=== PATIENT | female | born 1990 | race Caucasian/White ===

== ENCOUNTER → 2018-10-30 13:49 | Outpatient (CLI) | payer OTHER ==
[2018-10-30 14:55] LABS: AMYLASE - SERUM 39 U/L (25-115); LIPASE 119 U/L (73-393)
[2018-11-01 15:12] LABS: ANTIGLIADIN IGA 5 units (0-19); ANTIGLIADIN IGG 2 units (0-19)
[2018-11-02 06:14] LABS: ENDOMYSIAL ANTIBODY IGA Negative (Negative)
== END | disposition home or self-care (01) ==
LOC: D.LAB 10-09 13:15
PROVIDERS: ATTEND Internal Medicine Gastroenterology
DX: R10.12 Left upper quadrant pain (principal); R12 Heartburn; R11.0 Nausea

== ENCOUNTER → 2019-04-05 10:52 | Outpatient (CLI) | payer OTHER ==
--- NOTE | 2019-04-10 08:56 | EC ---
PATIENT:DIANA SAGASTUME DATE OF SERVICE: 04/05/19 SEX: F MEDICAL RECORD: [id number] DATE OF : [birth year] LOCATION:D[facility] AGE OF PATIENT: 29 ADMISSION DATE: 04/05/19 REFERRING PHYSICIAN: INTERPRETING PHYSICIAN: SAGAR AGUILAR MD ECHOCARDIOGRAM REPORT ECHO CHARGES 4 ECHO COMPLETE Date: 04/05/19 CLINICAL DIAGNOSIS: MURMUR/PALPITATIONS ECHOCARDIOGRAPHIC MEASUREMENTS (adult normal given) AC root (d.<3.7cm) 2.6 cm LV Septum d (<1.2 cm> 0.9 cm Valve Excursion 2.2 cm LV Septum (systole) 1.4 cm Left Atria (s.<4.0cm> 3.6 cm LVPW d(<1.2cm) 0.9 cm RV (d.<2.3cm) 3.0 cm LVPW (sytole) 1.8 cm LV diastole(<5.6CM) 5.2 cm MV E-F(>70mm/sec) cm LV systole 2.7 cm LVOT Diameter 2.0 cm MV exc.(>10mm) cm Est.ejection fraction (50-75%) % DOPPLER: LVIT cm/sec A 68.0 cm/sec E 85.0 cm/sec LA cm/sec RVSP 27.0 mmHg LVOT 151 cm/sec AOP1/2T m/s Asc. Ao 158 cm/sec RVOT 95.0 cm/sec RA cm/sec PA 161 cm/sec AV Gradient Peak 10.0 mmHg AV Mean 4.7 mmHg AV Area 2.9 cm MV Gradient Peak 4.8 mmHg MV Mean 2.1 mmHg MV Area cm COMMENTS: OP - HC Dry Cleaner: Roxy CLARKE NATALIA Proof Coin Collector: 3 Dr. Meléndez TAPE# PACS Pericardial Effusion N DATE OF SERVICE: Adequate 2D, color flow imaging, spectral Doppler, and M-Mode. No LVH. LV internal dimension is normal. Wall motion is normal. EF is greater than or equal to 55%. Aortic valve is tricuspid. No evidence of stenosis by Doppler interrogation. Left atrium is normal. Mitral valve shows no prolapse. Trace MR. Right-sided chambers are grossly normal. Trace TR. TRANSINT:[id number] Voice Confirmation ID: [id number] DOCUMENT ID: [id number] ECHOCARDIOGRAM REPORT [id number] DIANA SAGASTUME,SAGAR Romo MD at 0856 CC: [id number] DICTATION DATE: 04/09/19 1445 COMMANDING OFFICER HOMICIDE SQUAD: 04/09/19 1631 DEP CLI 04/05/19 [facility] [address] [id number]
== END | disposition home or self-care (01) ==
LOC: D.HCCECHO 10:52
PROVIDERS: ATTEND Internal Medicine Interventional Cardiology
DX: R00.2 Palpitations (principal)

== ENCOUNTER → 2019-05-11 12:36 | Outpatient (CLI) | payer OTHER ==
[2019-05-11 13:01] LABS: PROTEIN - URINE 15.4 mg/dL (0.0-11.9)
== END | disposition home or self-care (01) ==
LOC: D.LDO 12:36
PROVIDERS: ATTEND Obstetrics & Gynecology
DX: Z34.90 Encounter for supervision of normal pregnancy, unspecified, unspecified trimester (principal)